=== PATIENT | male | born 1960 | race Caucasian/White ===

== ENCOUNTER 2023-07-27 10:00 | Outpatient (RCR) | payer OTHER, SELFPAY | END 2023-09-01 07:50 | disposition home or self-care (01) | LOC: PT 10:00 | PROVIDERS: Visit Provider Orthopaedic Surgery Adult Reconstructive Orthopaedic Surgery | DX: M75.41 Impingement syndrome of right shoulder (principal); M75.42 Impingement syndrome of left shoulder | CPT/HCPCS: 97010; 97014; 97110; 97163; G0283 ==

== ENCOUNTER 2023-11-22 08:00 | Outpatient (RCR) | payer OTHER, SELFPAY | END 2024-01-03 15:32 | disposition home or self-care (01) | LOC: PT 08:00 | PROVIDERS: Visit Provider Orthopaedic Surgery Adult Reconstructive Orthopaedic Surgery | DX: Z98.890 Other specified postprocedural states (principal); G56.01 Carpal tunnel syndrome, right upper limb | CPT/HCPCS: 97163 ==